=== PATIENT | female | born 1970 | race Caucasian/White ===

== ENCOUNTER → 2016-04-06 16:49 | Outpatient (CLI) | payer BC | END | disposition home or self-care (01) | LOC: D.MAMMO 08:00 | DX: Z12.31 Encounter for screening mammogram for malignant neoplasm of breast (principal) ==

== ENCOUNTER → 2017-07-09 10:38 | Outpatient (CLI) | payer BC | END | disposition home or self-care (01) | LOC: D.MAMMO 10:38 | DX: Z12.31 Encounter for screening mammogram for malignant neoplasm of breast (principal) ==

== ENCOUNTER → 2017-08-02 16:57 | Outpatient (CLI) | payer BC ==
[~2017-08-02 16:57] MED LIST: BACLOFEN10 MG PO; BONIVA150 MG PO; LORATADINE; MAXZIDE 75/501 TAB PO; PSEUDOEPHEDRINE; RESTASIS EMU 0.0; VALTREX500 MG PO; XANAX0.5 MG PO; [UNRECOGNIZED DRUG - OTHER]
[2017-08-31 10:20] VITALS: BMI 22.1
== END | disposition home or self-care (01) ==
LOC: D.MAMMO 14:30
DX: R92.8 Other abnormal and inconclusive findings on diagnostic imaging of breast (principal)

== ENCOUNTER 2017-08-31 09:30 | Day surgery (SDC) | payer BC ==
[~2017-08-31] VITALS: Ht 170.2 cm; Wt 64.0 kg
--- NOTE | ~2017-08-31 | OP ---
PATIENT NAME: MIKI BARNES MEDICAL RECORD: [id number] :66 LOCATION:D.[facility] ADMISSION DATE: SURGEON: ANKUSH FIELDS DATE OF OPERATION: 08/31/2017 SURGEON: Ankush Fields DPM PREOPERATIVE DIAGNOSIS: Hammertoe, fifth toe, right foot. POSTOPERATIVE DIAGNOSIS: Hammertoe, fifth toe, right foot. PROCEDURE: Derotational arthroplasty, fifth toe, right foot. ANESTHESIA: General. HEMOSTASIS: Pneumatic ankle tourniquet inflated to 250 mmHg. ESTIMATED BLOOD LOSS: Minimal. MATERIALS: A 3-0 Vicryl, 4-0 nylon. INJECTABLES: 15 cc of 0.5% bupivacaine plain. The patient has history of a contracture of the fifth toe of the right foot. The toe rubs in the shoes causing pain. She has tried wider shoes to no avail. She continues to have issues with the area. We have discussed the proposed procedure, risks and benefits were reviewed. Complications were discussed. All questions were answered. She was appropriately consented for the above-mentioned procedure. DESCRIPTION OF PROCEDURE: The patient was brought in the operating room and placed on the operating table in supine position. A timeout was called with Dr. Fields, identified the patient, the surgical site, and the surgery to be performed. Once appropriate anesthesia was obtained, the foot was prepped and draped in the usual aseptic manner. Attention was directed to the dorsal aspect of the fifth toe of the right foot where a Y-shaped incision was made directly over the fifth metatarsophalangeal joint. This incision was carried deep to soft tissue with care being taken to retract all vital neurovascular structures. All bleeders were cauterized along the way. The extensor tendon was noted to be contracted at this level and a Z-lengthening was performed of the tendon. Dissection was carried further into the foot and the capsular structures were noted to be contracted both medially, laterally, and dorsally at the fifth metatarsophalangeal joint. Utilizing a fresh 15 blade, these tight capsule structures were sharply incised. The joint was inspected and the cartilage was found to be intact with no erosions or defects. The foot was then loaded and the fifth toe, right foot was noted to rest in a much more rectus flat position. At this time, an intraoperative decision was made to not use a K-wire in the toe as the toe was sitting quite flat without the pin. The surgical site was then irrigated with copious amounts of normal sterile saline via bulb syringe. Attention was then directed to the extensor tendon, which was then repaired in a lengthened position utilizing 3-0 Vicryl. The subq was then reapproximated and coapted utilizing 3-0 Vicryl. The skin was then reapproximated and coapted OPERATIVE REPORT [id number] MIKI BARNES using 4-0 nylon. A dressing consisting of Xeroform, 4 x 4's, Kerlix, and an Lee bandage was applied to the right foot. The pneumatic ankle tourniquet was deflated and cap refill time is immediate to all digits of the right foot. The patient tolerated the procedure and anesthesia well. She left the operating with vital signs stable and cap refill time intact. The patient will be discharged home with instructions to ice and elevate the right foot. She was provided with prescriptions for Demerol 50 mg, Phenergan 25 mg. She will follow up with us here in the office. She has my cell phone number for after hours difficulties and there were no complications with this procedure. TRANSINT:[id number] Voice Confirmation ID: [id number] DOCUMENT ID: [id number] ANKUSH FIELDS at 1735 CC: [id number] DICTATION DATE: 08/31/17 141 [employer] ENGINEER: 08/31/17 1425 [facility] 08/31/17 [facility] [address] [place] [address]
[2017-08-31 10:20] VITALS: Ht 170.2 cm; Wt 64.0 kg
== END 2017-08-31 16:00 | disposition home or self-care (01) ==
LOC: D.OPS 09:30 → D.PAN 11:30 → D.OPS 16:00
DX: M20.41 Other hammer toe(s) (acquired), right foot (principal); Z01.812 Encounter for preprocedural laboratory examination

== ENCOUNTER 2019-01-22 08:00 | Outpatient (CLI) | payer BC ==
[2017-08-31 10:20] VITALS: BMI 22.1
== END 2019-01-22 23:59 | disposition home or self-care (01) ==
LOC: D.MAMMO 08:00
PROVIDERS: ATTEND Obstetrics & Gynecology
DX: Z12.31 Encounter for screening mammogram for malignant neoplasm of breast (principal)

== ENCOUNTER → 2019-02-19 08:30 | Outpatient (CLI) | payer BC ==
[2017-08-31 10:20] VITALS: BMI 22.1
== END | disposition home or self-care (01) ==
LOC: D.MAMMO 08:30
PROVIDERS: ATTEND Obstetrics & Gynecology
DX: R92.8 Other abnormal and inconclusive findings on diagnostic imaging of breast (principal)

== ENCOUNTER → 2019-03-13 09:00 | Outpatient (CLI) | payer BC ==
[2017-08-31 10:20] VITALS: BMI 22.1
== END | disposition home or self-care (01) ==
LOC: D.MAMMO 08:00
PROVIDERS: ATTEND Obstetrics & Gynecology
DX: R92.8 Other abnormal and inconclusive findings on diagnostic imaging of breast (principal); R92.1 Mammographic calcification found on diagnostic imaging of breast; Z53.9 Procedure and treatment not carried out, unspecified reason

== ENCOUNTER 2019-03-28 06:05 | Day surgery (SDC) | payer BC ==
[2019-03-27 09:23] LABS: BASOPHILS 0.4 % (0-2); EOSINOPHILS 1.3 % (0-7); HEMATOCRIT 42.1 % (36.0-48.0); HEMOGLOBIN 14.6 g/dL (12-16); IMMATURE GRANULOCYTES 0.2 % (0-5); LYMPHOCYTES 20.1 % (15-50); MCH 32.7 pg (26.0-34.0); MCHC 34.7 g/dL (31.0-37.0); MCV 94.4 fL (80.0-100.0); MEAN PLATELET VOLUME 8.8 fL (7.4-10.4); MONOCYTES 13.8 % (2-11); NEUTROPHILS 64.2 % (40-80); PLATELET COUNT 263 10x3/uL (130-400); RBC 4.46 10x6/uL (4.00-5.40); RDW 12.9 % (11.5-14.5); WBC 4.6 10x3/uL (4.8-10.8)
[2019-03-27 09:27] LABS: ANION GAP 10.4 mmol/L (8-16); CALCIUM 10.7 mg/dL (8.5-10.1); CARBON DIOXIDE 33.1 mmol/L (21.0-32.0); CREATININE - SERUM 0.9 mg/dL (0.6-1.3); POTASSIUM - SERUM 3.5 mmol/L (3.5-5.1)
[~2019-03-28] VITALS: Ht 170.2 cm; Wt 69.4 kg
[~2019-03-28 06:05] MED LIST changes: +ATIVAN0.5 MG PO; +RELAFEN500 MG PO
[2019-03-28 06:45] VITALS: BP 131/86; Ht 170.2 cm; Wt 69.4 kg
[2019-03-28] MEDS ORDERED: HYDROCODON-ACE1 EA10 PO (10:10)
--- NOTE | 2019-03-28 13:17 | NUR ---
1315 ULTRAM 50 MG PO Q 6HOURS PRN PAIN, #14 CALLED INTO [facility] PER DR. ORTEGA'S ORDERS
--- NOTE | 2019-04-04 10:39 | OP ---
PATIENT NAME: MIKI BARNES MEDICAL RECORD: [id number] :66 LOCATION:D.[facility] ADMISSION DATE: SURGEON: BAKARI ORTEGA MD DATE OF OPERATION: 03/28/2019 PREOPERATIVE DIAGNOSES: 1. Microcalcifications of the right breast. 2. Hypercholesterolemia. 3. Arthritis. POSTOPERATIVE DIAGNOSES: 1. Microcalcifications of the right breast. 2. Hypercholesterolemia. 3. Arthritis. PROCEDURE: Needle local right breast lumpectomy. SURGEON: Bakari Ortega MD DESCRIPTION OF PROCEDURE: The patient underwent needle localization on the right breast for microcalcifications. The patient was then taken to the operating room and the right breast was prepped and draped in sterile fashion. A semicircular incision was made on the superior and medial aspect of the patient's nipple areolar complex. Electrocautery was used to dissect through the subcutaneous tissue. When we tunneled up to the wire exit site, which was on the upper inner quadrant of the right breast, we were able to eviscerate the wire through the skin. At this point, we took out a large core of tissue from the patient's right upper outer quadrant, which extended all the way down to the patient's pectoral fascia. Once we had this out, we could see that the wire was within the specimen. This specimen was marked appropriately and sent to radiology. Radiology said that the specimen appeared to be adequate with calcifications present and the wire was noted to be intact in the specimen. We then irrigated out the wound with sterile water and treated any bleeding with electrocautery. The subcutaneous tissues were all reapproximated with interrupted 3-0 Vicryls and the skin was closed with running subcutaneous 5-0 Monocryl. A total of 10 mL of 0.25% Marcaine with epinephrine was infused into the surrounding tissues and the wounds were dressed appropriately. COMPLICATIONS: None. CONDITION: Stable. ANESTHESIA: General endotracheal and local. BLOOD LOSS: Minimal. TRANSINT:[id number] Voice Confirmation ID: [id number] DOCUMENT ID: [id number] OPERATIVE REPORT [id number] MIKI BARNES BAKARI ORTEGA MD at 1039 CC: GELY MOTT MD and TAMIKO PARKER V [id number] DICTATION DATE: 03/28/19 1008 PLEATER: 03/28/19 1219 [facility] 03/28/19 [facility] [address] [place] [id number]
== END 2019-03-28 13:19 | disposition home or self-care (01) ==
LOC: D.OPS 06:05 → D.PAN 08:00 → D.MAMMO 08:00 → D.PAN 08:30 → D.OPS 08:30
PROVIDERS: ATTEND Surgery
DX: R92.0 Mammographic microcalcification found on diagnostic imaging of breast (principal); E78.00 Pure hypercholesterolemia, unspecified; M19.90 Unspecified osteoarthritis, unspecified site